=== PATIENT | female | born 1980 | race Caucasian/White ===

== ENCOUNTER 2024-02-11 07:38 | Day surgery (SDC) | payer OTHER ==
[2024-02-11] MEDS: SOD FERRIC GLUC COMPLX IV SCH (08:17)
[2024-02-11] MEDS: SUCROSE IV SCH (08:17)
[2024-02-11] MEDS: NA CHLORIDE 0.9% IV SCH (08:17)
[2024-02-11 09:36] VITALS: BP 125/66; TEMP 97.9; O2SAT 98; BMI 27.2
== END 2024-02-11 09:20 | disposition home or self-care (01) ==
LOC: DS 07:38
PROVIDERS: ATTEND Nurse Practitioner Women's Health
DX: D50.0 Iron deficiency anemia secondary to blood loss (chronic) (principal)
CPT/HCPCS: 96365; J2916